=== PATIENT | male | born 1950 | race Caucasian/White ===

== ENCOUNTER 2018-04-07 18:05 | Emergency (ER) | payer BC ==
[~2018-04-07] VITALS: Ht 172.7 cm; Wt 102.1 kg
[2018-04-07 18:13] VITALS: BP_SYST 133
[2018-04-07] MEDS ORDERED: BACITRACIN 1 GM OINT TP ONE (18:45)
[2018-04-07] MEDS ORDERED: DIPHENHYDRAMINE HCL 12.5 MG/5 ML UDC PO ONE (18:45)
== END 2018-04-07 18:54 | disposition home or self-care (01) ==
LOC: SED 18:05
DX: S50.861A Insect bite (nonvenomous) of right forearm, initial encounter (principal); R03.0 Elevated blood-pressure reading, without diagnosis of hypertension; W57.XXXA Bitten or stung by nonvenomous insect and other nonvenomous arthropods, initial encounter; Y93.89 Activity, other specified; Y92.89 Other specified places as the place of occurrence of the external cause; Y99.8 Other external cause status
CPT/HCPCS: 99283